=== PATIENT | female | born 1975 | race Caucasian/White ===

== ENCOUNTER 2021-08-01 08:11 | Emergency (ER) | payer OTHER ==
[2021-08-01 09:08] LABS: BASOPHIL 0.9 % (0-2); EOSINOPHIL 3.4 % (0-5); HCT 47.3 % (37.0-47.0); HGB 15.8 g/dl (12.5-16.0); LYMPHOCYTE 21.4 % (15-48); MCH 31.3 pg (25.0-31.0); MCHC 33.4 g/dL (32.0-36.0); MCV 93.8 fL (78.0-100.0); MONOCYTE 8.5 % (0-12); MPV 11.8 fL (6.0-9.5); NEUTROPHIL 65.5 % (41-80); NRBC 0; PLT 180 K/uL (150-400); RBC 5.04 M/uL (4.20-5.40); RDW 13.5 % (11.5-14.0); WBC 8.6 K/uL (4.0-10.5)
[2021-08-01 09:29] LABS: ALBUMIN 3.6 g/dL (3.4-5.0); BILIRUBIN - TOTAL 0.3 mg/dL (0.2-1.0); BUN/CREAT RATIO (CALC) 14.5 RATIO; CREATININE 1.1 mg/dL (0.51-0.95); GLOBULIN (CALCULATION) 3.9 g/dL; POTASSIUM 4.4 mmol/L (3.5-5.1); TOTAL PROTEIN 7.5 g/dL (6.4-8.2)
[2021-08-01] MEDS ORDERED: BISOPROLOL FUMAR5 MG PO (09:44)
== END 2021-08-01 09:55 | disposition home or self-care (01) ==
LOC: FER 08:11
PROVIDERS: Internal Medicine
DX: I10 Essential (primary) hypertension (principal); N17.9 Acute kidney failure, unspecified; F17.210 Nicotine dependence, cigarettes, uncomplicated; Z88.8 Allergy status to other drugs, medicaments and biological substances
CPT/HCPCS: 36415; 80053; 85025; J3490